=== PATIENT | female | born 1975 | race African-American/Black ===

== ENCOUNTER → 2017-05-19 | Outpatient (CLI) | payer BC | END | disposition home or self-care (01) | LOC: KCIC MAMMO 15:34 | PROVIDERS: ATTEND Obstetrics & Gynecology | DX: Z12.31 Encounter for screening mammogram for malignant neoplasm of breast (principal) | CPT/HCPCS: G0202; 77067 ==

== ENCOUNTER → 2017-06-07 | Outpatient (CLI) | payer BC ==
--- NOTE | 2017-06-07 14:13 | KCIC ---
Right breast diagnostic ultrasound HISTORY: Asymmetric tissue density lateral right breast on the May 28, 2017 mammogram Sonographic examination of the lateral right breast was performed and multiple static images were obtained. No focal abnormality is identified. IMPRESSION: No ultrasound correlation to the mammographic abnormality. It is possible that this is superimposition of normal fibroglandular tissue. Recommend the patient return for a right breast mammogram in 6 months to assess stability. These results were given to the patient in person. BI-RADS Category 3: Probably Benign. Electronically signed by: Adi Yu III, MD (06/07/2017 2:10 PM) [id number]
--- NOTE | 2017-06-07 14:15 | KCIC ---
History: asymmetric tissue density lateral right breast on the May 19, 2017 mammogram. Technique: The following digital mammographic additional views were obtained: spot CC true ML rolled CC. Computer aided detection was utilized with iCAD Second Look 7.2-H Comparison: June 22, 2012 Findings: The density does not persist consistent with summation of normal fibroglandular tissue. Impression: No suspicious findings. Recommend a right mammogram in 6 months to assess stability. BI-RADS Category 3: Probably Benign. These results were given to the patient in person. A mammogram does not have 100% sensitivity and therefore a negative imaging study should not delay further work up of a suspicious abnormality. "Our facility is accredited by the [employer] Mammography [employer]." Electronically signed by: Adi Yu III, MD (06/07/2017 2:12 PM) [id number]
== END | disposition home or self-care (01) ==
LOC: KCIC MAMMO 12:55
PROVIDERS: ATTEND Obstetrics & Gynecology
DX: N64.89 Other specified disorders of breast (principal); R92.8 Other abnormal and inconclusive findings on diagnostic imaging of breast
CPT/HCPCS: 76641; G0206; 77065

== ENCOUNTER → 2017-12-07 | Outpatient (CLI) | payer OTHER | END | disposition home or self-care (01) | LOC: KCIC MAMMO 14:23 | DX: N64.89 Other specified disorders of breast (principal) | CPT/HCPCS: 77065 ==

== ENCOUNTER → 2018-10-31 | Outpatient (CLI) | payer OTHER ==
--- NOTE | 2018-10-31 17:09 | KCIC ---
Bilateral diagnostic digital mammograms with 3-D tomosynthesis: Reason for examination: Follow-up parenchymal asymmetry. Comparison is made to previous studies dated back to 05/19/2017. Bilateral mammograms in CC and oblique projections were obtained with 2-D imaging and 3-D tomosynthesis imaging on a Siemens Inspiration unit and reviewed on the workstation. Interpretation was made with the benefit of CAD. The skin and nipples show no abnormalities. No abnormal axillary lymph nodes are seen. The breast parenchyma shows scattered fatty and fibroglandular density. (Breast density: Category B.) There continues to be parenchymal asymmetry in the 7:00 C position of the right breast. This appears slightly more prominent than on previous exams but the appearance does improve with medially rolled cc projection. There are no other new dominant masses, suspicious calcifications or architectural distortion. Impression: Asymmetry persists at the 7:00 C position of the right breast. Ultrasound to follow. BI-RADS Category 0: Incomplete. Needs additional imaging evaluation Right breast ultrasound: Comparison is made to previous study dated 06/07/2017. Ultrasound examination was performed in the area of mammographic concern and at the right axilla. In the 7:00 position 11 cm from the nipple and corresponding to the area of mammographic concern, there is a small hypoechoic circumscribed lesion measuring 3.6 mm in greatest dimension which has a benign fibrocystic/fibroadenomatous appearance. This lies within a patch of fibroglandular tissue. No other cystic or solid lesions are seen. No abnormal appearing lymph nodes are seen in the axilla. IMPRESSION: Benign-appearing 3.6 mm hypoechoic fibrocystic/fibroadenomatous type nodule at the 7:00 position and lying within a patch of fibroglandular tissue which would correspond to the area of mammographic concern. No suspicious-appearing lesions are seen. Recommend 6 month sonographic follow-up. BI-RADS Category 3: Probably Benign. "Our facility is accredited by the [employer] Mammography [employer]." This patient's information has been entered into a reminder system for the patient to be notified with the results of her examination and a target date for the next mammogram. Electronically signed by: Sindy Yu MD (10/31/2018 5:04 PM) [id number]
== END | disposition home or self-care (01) ==
LOC: KCIC MAMMO 13:08
PROVIDERS: ATTEND Obstetrics & Gynecology
DX: N63.13 Unspecified lump in the right breast, lower outer quadrant (principal)
CPT/HCPCS: 76641; 77066; G0279; 77062